=== PATIENT | female | born 1960 | race Caucasian/White ===

== ENCOUNTER → 2016-12-07 | Day surgery (SDC) | payer OTHER ==
[~2016-12-07] VITALS: Ht 170.2 cm; Wt 68.0 kg
[~2016-12-07] MED LIST: BUPIVACAINE HCL PF 0.5% 30 ML VIAL ONE; CALCTAB19 PO; CHLORHEXIDINE GLUCONATE 2 % 1 PACK (2 CLOTHS) TOPICAL PRN; CHOL100025 CHEW; DEXT 5%-NACL 0.45% 1000 ML INJ 1,000 ML IV SCH; ESTR1TAB PO; ESTR2MIS PV; INSULIN HUMAN REGULAR 1,000 UNITS/10 ML VIAL SQ PRN; LACTATED RINGER'S 1000 ML IV PRN; LIDOCAINE HCL 2% 50 ML VIAL ONE; METOPROLOL TARTRATE 25 MG TAB PO PRN; NAPR500 PO; POVIDONE IODINE 5% (ANTISEPSIS KIT) 4 APPLICATIONS EACH NARE PRN; PRED50 PO; SODIUM CHLORID 0.9% 500 ML IV PRN; SODIUM CHLORIDE 0.9% FLUSH 5 ML FLUSH IVF PRN; SODIUM CHLORIDE 0.9% FLUSH 5 ML FLUSH IVF SCH; ceFAZolin 2 GM PREMIX 50 ML IV SCH
[2016-12-07 06:40] VITALS: BP 118/75; PULSE 59; RESP 16; TEMP 97.5; O2SAT 100
[2016-12-07 06:45] VITALS: PULSE 59
[2016-12-07 07:06] LABS: HEMATOCRIT 36.8 % (35.0-46.0); MEAN CELL VOLUME 81.3 FL (80.0-100.0); MEAN CORPUSCULAR HGB CONC 33.3 % (32.0-36.0); PLATELET COUNT 167 TH/MM3 (150-450); RED BLOOD COUNT 4.52 MIL/MM3 (4.00-5.30); RED CELL DISTRIBUTION WIDTH 13.2 % (11.6-17.2); REVIEW FLAG FINAL; WHITE BLOOD COUNT 4.1 TH/MM3 (4.0-11.0)
[2016-12-07 07:41] VITALS: PULSE 61
--- NOTE | 2016-12-07 07:50 | HP.UPD ---
H&P Update Date: Dec 07, 2016 Note The Pre-Admit History and Physical Examination regarding the above named patient was reviewed (including, but not limited to, vital signs, medications, allergies, co-morbid conditions), and upon re-examination it is noted that: Indicated with "X" x - the patient's condition has not significantly changed since the last examination. [] - the patient's condition has changed since the last examination. Changes: Renita Dumont MD Dec 07, 2016 07:50
--- NOTE | 2016-12-07 10:17 | HHI.PR ---
Immediate Post Op Note Procedure Date: Dec 07, 2016 Pre Op Diagnosis: (1) Primary osteoarthritis of left wrist Post Op Diagnosis: (1) Primary osteoarthritis of left wrist Surgeon: Renita Dumont Catcher Plug(s): None Procedure: Interposition arthroplasty of the left thumb CMC joint with tendon transfer. Anesthesia: Regional Block Drains: None Tourniquet time (min at mmHg) 71 minutes at 220 mm Hg Patient to: SDS Patient Condition: Good Date/Time of Procedure: SEE SURGICAL CARE RECORD Renita Dumont MD Dec 07, 2016 10:17
[2016-12-07 10:24] VITALS: BP 129/74; PULSE 54; RESP 16; TEMP 98; O2SAT 99
--- NOTE | 2016-12-07 16:37 | EKG ---
Date Performed: 12/07/2016 Time Performed: 07:12:44 PTAGE: 55 years EKG: SINUS BRADYCARDIA BORDERLINE ECG NO PREVIOUS TRACING DOCTOR: Sampson Hobbs Interpretating Date/Time 12/07/2016 16:36:42
--- NOTE | 2016-12-09 05:38 | MP ---
cc: CHEN VELEZ M.D. 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 PROCEDURE: 1. Interposition arthroplasty of the left thumb CMC joint. 2. Tendon transfer to the left thumb CMC joint. ANESTHESIA Regional block. SURGEON Chen Velez MD INDICATIONS 55-year-old female with degenerative joint disease of left thumb CMC joint. FINDINGS There was significant amount of degenerative arthritis at the CMC joint. At the completion of the procedure, the carpal trapezium had been completely removed and replaced with a tendon transfer using a portion of the flexor carpi radialis. TOURNIQUET TIME: 71 minutes. DESCRIPTION OF PROCEDURE: The patient was seen preoperatively where the site and side were identified and marked. The patient was then taken to the operating room, placed in supine position. Her identity was checked against the arm band and the consent form, site and side confirmed. Time-out called prior to beginning the procedure. The left upper extremity was prepped with Hibiclens and draped in the usual sterile fashion. The area to be incised was outlined with a marking pen. There was a transverse incision of the dorsal base of the left thumb CMC joint. A transverse incision was also designed at the most distal volar portion of the flexor carpi radialis and wrist, and 10 cm proximal to this. The arm was then exsanguinated and tourniquet inflated to 220 mmHg. Attention was first turned to the base of the thumb where a transverse incision was made down through skin, down to the subcutaneous tissue. Under loupe magnification using sharp and blunt dissection the adjacent extensor tendons were identified and retracted. The sheaths were opened to allow for traction. Incision was then made into the capsule at the CMC joint exposing the trapezium which was then carefully from surrounding structures using an osteotome. It was then removed in piecemeal with rongeur. The volar base of the metacarpal to the thumb was then also removed with a rongeur. A 4 millimeter hole was then drilled obliquely from the dorsal aspect of the base of the metacarpal into the joint using sequentially larger drill bits. The wound was then copiously irrigated with saline. A 15 blade was then used to make a transverse incision at the most distal volar portion of the flexor carpi radialis in the wrist and 10 cm proximal to this. Approximately dissection was done under loupe magnification with sharp and blunt dissection exposing the tendon which was then from the muscle fibers and an incision was made at the ulnar 50% of the tendon and it was then passed distally through the second incision which was made with a 15 blade and dissection was continued down with a scissor until the tendon sheath was identified. An open tendon passer was passed from distal to proximal and the tendon was stripped all the way down to the second incision and then passed into the joint using a right angle clamp. The fibers were then carefully all the way to the insertion at the base of the index metacarpal. A Almaguer passer was then used to pass the tendon through the base of the thumb metacarpal which was then adducted against the index metacarpal and pulled distally while the tendon was pulled and sewn upon itself. The remainder was then wrapped around the portion coming up from the base of the index metacarpal and then secured in place with 3-0 Tycron suture material. The capsule was then closed after making sure that there was good stability. This was done with 3-0 Tycron. The wounds were then irrigated with saline and closed with 4-0 Vicryl to the dermal layer and then Dermabond to the skin. Once the glue had dried in several layers Steri-Strips were applied and the tourniquet was released after 71 minutes of tourniquet time. Pressure was applied. After several minutes there was no evidence of any swelling or oozing and a dressing was applied using fluffy gauze hand wrap and a thumb spica splint. The patient was then taken from the operating room back to [facility] in satisfactory condition having tolerated the procedure well. Postoperative instructions include keeping the arm elevated, keeping it clean and dry, and returning next week for follow up. The patient will be taking ibuprofen 100 mg every hours as needed for pain. MD ALLYSON Dan/LONI /10:13 AM /4:49 AM
== END | disposition home or self-care (01) ==
LOC: PHSDC 06:09
PROVIDERS: ATTEND Specialist
PROC: 3E0T3CZ (ICD-10-PCS; principal; 2016-12-07 07:59)
DX: M19.032 Primary osteoarthritis, left wrist (principal); Z01.818 Encounter for other preprocedural examination; Z01.810 Encounter for preprocedural cardiovascular examination
CPT/HCPCS: 01830; 25332; 36415; 64450; 76000; 85027; 93005; J0690; J7120

== ENCOUNTER 2017-01-09 02:21 | Emergency (ER) | payer OTHER ==
[~2017-01-09] VITALS: Ht 170.2 cm; Wt 68.0 kg
[~2017-01-09 02:21] MED LIST changes: -BUPIVACAINE HCL PF 0.5% 30 ML VIAL ONE; -CHLORHEXIDINE GLUCONATE 2 % 1 PACK (2 CLOTHS) TOPICAL PRN; -DEXT 5%-NACL 0.45% 1000 ML INJ 1,000 ML IV SCH; -ESTR1TAB PO; -INSULIN HUMAN REGULAR 1,000 UNITS/10 ML VIAL SQ PRN; -LACTATED RINGER'S 1000 ML IV PRN; -LIDOCAINE HCL 2% 50 ML VIAL ONE; -METOPROLOL TARTRATE 25 MG TAB PO PRN; -POVIDONE IODINE 5% (ANTISEPSIS KIT) 4 APPLICATIONS EACH NARE PRN; -PRED50 PO; -SODIUM CHLORID 0.9% 500 ML IV PRN; -SODIUM CHLORIDE 0.9% FLUSH 5 ML FLUSH IVF PRN; -SODIUM CHLORIDE 0.9% FLUSH 5 ML FLUSH IVF SCH; -ceFAZolin 2 GM PREMIX 50 ML IV SCH
[2017-01-09 02:22] VITALS: BP 125/66; PULSE 71; RESP 16; TEMP 97.8; O2SAT 100
[2017-01-09] MEDS ORDERED: diphenhydrAMINE HCL 25 MG CAP PO ONE (03:15)
[2017-01-09] MEDS ORDERED: predniSONE 50 MG TAB PO ONE (03:15)
[2017-01-09] MEDS ORDERED: PRED50 PO (04:16)
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
== END 2017-01-09 04:29 | disposition home or self-care (01) ==
LOC: NEPE 02:21
DX: T78.40XA Allergy, unspecified, initial encounter (principal)
CPT/HCPCS: 99283; J7512